=== PATIENT | female | born 1980 | race Caucasian/White ===

== ENCOUNTER 2017-10-08 10:23 | Day surgery (SDC) | payer BC ==
[~2017-10-08] VITALS: Ht 167.6 cm; Wt 110.4 kg
[~2017-10-08 10:23] MED LIST: ENDOCET 5-3251 EACH PO; EXPECTA PRENAT1 EACH PO; IBUPROFEN800 MG PO; MOTRIN800 MG PO
[2017-10-08 10:52] VITALS: BP 138/80
[2017-10-08] MEDS ORDERED: ALEVE220 MG PO (11:18)
[2017-10-08 13:24] VITALS: BP 131/65
[2017-10-08 14:25] VITALS: BP 121/76
== END 2017-10-08 14:25 | disposition home or self-care (01) ==
LOC: SDC 10:23
PROC: 0UDB8ZX Extraction of Endometrium, Via Natural or Artificial Opening Endoscopic, Diagnostic (ICD-10-PCS; principal; 2017-10-08)
DX: N84.0 Polyp of corpus uteri (principal); N92.0 Excessive and frequent menstruation with regular cycle; K21.9 Gastro-esophageal reflux disease without esophagitis; Z87.891 Personal history of nicotine dependence
CPT/HCPCS: 88305; J1100; J1885; J2250; J2310; J2405; J2765; J3010; Q0175